=== PATIENT | male | born 1980 | race Two or more races ===

== ENCOUNTER 2020-01-12 13:54 | Emergency (ER) | payer OTHER ==
[~2020-01-12] VITALS: Ht 170.2 cm; Wt 78.0 kg
== END 2020-01-12 19:42 | disposition home or self-care (01) ==
LOC: ER 13:54
DX: S01.122A Laceration with foreign body of left eyelid and periocular area, initial encounter (principal); W45.8XXA Other foreign body or object entering through skin, initial encounter; Y93.89 Activity, other specified; Y92.89 Other specified places as the place of occurrence of the external cause; Y99.8 Other external cause status

== ENCOUNTER 2020-01-22 08:21 | Emergency (ER) | payer OTHER ==
[~2020-01-22] VITALS: Ht 170.2 cm; Wt 78.9 kg
== END 2020-01-22 10:33 | disposition home or self-care (01) ==
LOC: ER 08:21
DX: Z48.02 Encounter for removal of sutures (principal)

== ENCOUNTER 2021-02-09 10:46 | Emergency (ER) | payer OTHER ==
[~2021-02-09] VITALS: Ht 172.7 cm; Wt 80.7 kg
[2021-02-09] MEDS ORDERED: FLEXERIL (11:04)
[2021-02-09] MEDS ORDERED: ANAPROX (11:05)
[2021-02-09] MEDS ORDERED: TRAMADOL HCL50 MG PO (14:38)
[2021-02-09] MEDS ORDERED: ORPHENADRINE C100 MG PO (14:38)
[2021-02-09] MEDS ORDERED: KETO10TA2 PO (14:38)
== END 2021-02-09 14:53 | disposition home or self-care (01) ==
LOC: ER 10:46
DX: S33.5XXS Sprain of ligaments of lumbar spine, sequela (principal); S20.212S Contusion of left front wall of thorax, sequela; W00.0XXS Fall on same level due to ice and snow, sequela